=== PATIENT | female | born 1945 | race Caucasian/White ===

== ENCOUNTER 2016-11-08 08:31 | Emergency (ER) | payer MEDICARE, OTHER ==
[~2016-11-08] VITALS: Ht 157.5 cm; Wt 75.8 kg
[~2016-11-08 08:31] MED LIST: ACET-97 PO; SYN75 PO; [UNRECOGNIZED DRUG - CODE] PO
[2016-11-08 08:34] VITALS: BP 132/73; PULSE 96; RESP 16; O2SAT 95
--- NOTE | 2016-11-08 08:41 | ED.REPORT ---
HPI-General Illness Date of Service November 08, 2016 ED Provider: Ángel Vera DO The pt is a 71 y/o female w/ a hx of hypothyroidism and dementia presenting to the ED complaining of R eye swelling onset three hours ago. Her reports that she has been rubbing her eye "quite a bit" due to it itching. The pt denies any eye pain. The pt has a cold which began roughly two weeks ago w/ sneezing, rhinorrhea, and coughing and believes that this caused her symptoms. The pt's also reports the pt experiencing similar symptoms in the past which begin when the pt gets a cold. Nursing Notes Stated Complaint: COLD Chief Complaint: FLU/Cold Symptoms Nursing Notes Reviewed: Yes Allergies: Coded Allergies: caffeine (Verified Allergy, Kidney failure, 05/26/12) ergotamine tartrate (Verified Allergy, Kidney failure, 05/26/12) ibuprofen (Verified Allergy, 05/26/12) Scheduled Amoxicillin/Clav K 875-125 mg (Augmentin 875-125 mg) 1 Each Tablet 1 TABLET PO BID Levothyroxine-Expunged Drug, Do Not Renew! (Synthroid-Expunged Drug, Do Not Renew!) 75 Mcg Tablet 0.075 MG PO DAILY EXCEPT TAKE 1/2 TAB -- Loratadine (Claritin) 10 Mg Capsule 10 MG PO DAILY Scheduled PRN Acetaminophen (Apap) 500 Mg Tablet 500 MG PO PRN Rizatriptan-Expunged Drug, Do Not Renew! (Maxalt-Expunged Drug, Do Not Renew!) 10 Mg Tablet 10 MG PO ONCE PRN PRN MAY REPEAT @ 2 HR INTERVALS, NO TO EXCEED 30MG IN 24 HRS General Time Seen by MD: 08:40 Chief Complaint Other (R eye swelling ) Hx Obtained From: Patient, Spouse Arrived By: Walk-in Sudden in Onset?: Yes Onset Occurred: 1 - 4 hours ago Symptom Duration: Since onset Recent Healthcare: No recent hospitalization, Recent doctor visit Similar Sx Previous: Yes Past Medical History Past Medical History Hypothyroidism Kidney failure Dementia Depression Past Surgical History none reported Smoking History Unknown if Ever Smoker Social History Other Social History: Good social support Ambulatory Status Independent Review of Systems R eye swelling and itching Full Review of Systems Eyes: Denies: Eye pain bilateral Ears / Nose / Throat: Reports: Nasal congestion Respiratory: Reports: Non-productive cough Allergy / Immune: Reports: Rhinorrhea, Sneezing Complete sys rev & neg: except as marked. Physical Exam Vital Signs Vital Signs Date Time Temp Pulse Resp B/P Pulse Ox O2 Delivery O2 Flow Rate FiO2 11/08/16 08:34 37.9 96 16 132/73 95 Room Air Initial VS: Reviewed General/Constitutional: Awake, Alert Alertness: Positive: Confused Head / Eyes: Normocephalic, No photophobia Edema around R eye w/o erythema Mild conjunctival redness w/o drainage Mild clear discharge ENT: Atraumatic, Airway patent, Pharynx NL Neck: Atraumatic, Full range of motion Respiratory / Chest: Atraumatic, Breath sounds NL, Breath sounds = bilat, No respiratory distress, No rales, No rhonchi, No wheezing Cardiovascular: Heart rate NL, Regular rhythm, Heart sounds NL Back: Atraumatic, Full range of motion Skin: Atraumatic, Color NL, No rash, Warm, Dry Neurologic: Oriented X3, Speech NL Psychiatric: Affect NL, Mood NL Interpretation & Diagnostics Lab Results Interpretation Result Diagram: 11/08/16 0855 11/08/16 0855 Test 11/08/16 08:55 White Blood Count 12.6th/mm3 (3.8-10.1) Red Blood Count 4.35mil/mm3 (3.90-5.20) Hemoglobin 14.6g/dL (12.0-15.6) Hematocrit 41.1% (35.0-46.0) Mean Corpuscular Volume 94.5fL (81-100) Mean Corpuscular Hemoglobin 33.6pg (27.0-35.0) Mean Corpuscular Hemoglobin Concent 35.5% (32.0-37.0) Red Cell Distribution Width 12.0% (12.3-15.4) Platelet Count 179bil/L (150-400) Neutrophils (%) (Auto) 79.0% (40-74) Lymphocytes (%) (Auto) 13.3% (14-46) Monocytes (%) (Auto) 6.4% (4-12) Eosinophils (%) (Auto) 0.8% (0-5) Basophils (%) (Auto) 0.3% (0-3) Sodium Level 136mEq/L (134-144) Potassium Level 4.0mEq/L (3.5-5.2) Chloride Level 97mEq/L (97-108) Carbon Dioxide Level 26mmol/L (18-29) Blood Urea Nitrogen 12mg/dL (8-27) Creatinine 0.72mg/dL (0.57-1.00) Estimat Glomerular Filtration Rate 114mL/min (>59) Glucose Level 251mg/dL (60-99) Calcium Level 8.9mg/dL (8.5-10.1) Hold [place] Top Tube Received (Received) X-Ray Chest Interpretation Chest Xray Interpretation: No acute findings Interpretation / Wet Read by: Wet read ED physician Re-Eval/Medical Decision Med Decision/Clinical Course Exam looks more like allergic edema around the eyes associated with itching, it does not look like periorbital and especially not orbital cellulitis. Given the clinical history of a prolonged respiratory illness with nasal drainage Augmentin as per prescribed for sinus infection. Also she is given medicine, loratadine and Benadryl, to treat the allergic symptoms. Strong return and follow-up precautions given Source of Hx: Old records Time of Eval: 09:58 Patient Status: Condition improved Re-Evaluation/Progress Note: Pt rechecked, who is resting. Her edema has improved and her temperature. The diagnosis and plan for discharge are discussed. The pt understands and agrees with the plan. All questions are addressed at this time. Counseled Regarding: Diagnosis, Lab results, Need for follow-up, When/why to return to ED Discharge & Departure Primary Impression: Sinusitis Additional Impression: Hyperglycemia Disposition: Home Discharge Condition All VS Reviewed: Yes Condition: Stable Additional Instructions: Overall there is no evidence of pneumonia, you may have sinusitis. I suspect that your eye puffiness is likely allergic does not seem to be infectious at this time. Take Augmentin, Claritin, and [id number] Benadryl. Incidentally your blood sugar was elevated today, this sounds abnormal for you. You should follow-up with your primary care for more testing and repeat glucose monitoring to see if you have developed type II diabetes. Call your primary care doctor Thursday morning for repeat evaluation, return to the ER as needed for concerning or worsening symptoms. Referrals: Maryse Peng MD (PCP) Scribe Attestation Portions of this note were transcribed by Marty Juinor and Rahul Doe. I, Dr. Ky Lira personally performed the history, physical exam and medical decision- making; I reviewed and confirmed the accuracy of the information in the transcribed note. Signed by: Marty Junior and Rahul Doe, Scribes, 11/08/16 and 1010. copies to: Maryse Peng MD,Ángel Denise SEAY November 08, 2016 08:41 Marty Junior November 08, 2016 08:54 RAHUL DOE November 08, 2016 09:59
[2016-11-08] MEDS ORDERED: diphenhydrAMINE 25 mg Capsule PO ONE (08:55)
[2016-11-08 09:07] LABS: BASOPHILS % (AUTO) 0.3 % (0-3); EOSINOPHILS % (AUTO) 0.8 % (0-5); MONOCYTES % (AUTO) 6.4 % (4-12); Mean Corpuscular Hemoglobin 33.6 pg (27.0-35.0); Mean Corpuscular Volume 94.5 fL (81-100); Platelet Count 179 bil/L (150-400)
[2016-11-08] MEDS ORDERED: LORA10CA PO (10:03)
[2016-11-08] MEDS ORDERED: AMOX-366 PO (10:03)
--- NOTE | 2016-11-08 10:48 | DRSVH ---
PROCEDURE: X-RAY CHEST, TWO VIEWS ([id number]) INDICATIONS: cough TECHNIQUE: 2 views of the chest were acquired. COMPARISON: None. FINDINGS: Surgical changes and devices: None. Lungs and pleura: No pleural effusions or pneumothorax. Lungs are clear. Mediastinum: Mediastinal contours are normal. Heart size is normal. Bones and chest wall: No suspicious bony abnormalities. Soft tissues appear unremarkable. IMPRESSION: No acute disease Dictated by: Evangelista Coleman M.D. on 11/08/2016 at 10:25 Approved by: Evangelista Coleman M.D. on 11/08/2016 at 10:47
[2016-11-26] MEDS ORDERED: DONE10TA42 PO (15:26)
[2016-11-26] MEDS ORDERED: NAM10 PO (15:26)
[2016-11-26] MEDS ORDERED: LEVO25TA5 PO (15:26)
== END 2016-11-08 10:16 | disposition home or self-care (01) ==
LOC: SED 08:31
DX: J32.9 Chronic sinusitis, unspecified (principal); R73.9 Hyperglycemia, unspecified; E03.9 Hypothyroidism, unspecified; F03.90 Unspecified dementia, unspecified severity, without behavioral disturbance, psychotic disturbance, mood disturbance, and anxiety; Z88.6 Allergy status to analgesic agent; Z88.8 Allergy status to other drugs, medicaments and biological substances; Z79.899 Other long term (current) drug therapy

== ENCOUNTER 2016-11-28 12:10 | Day surgery (SDC) | payer MEDICARE, OTHER ==
[~2016-11-28] VITALS: Ht 160 cm; Wt 64.0 kg
[~2016-11-28 12:10] MED LIST changes: +DONE10TA42 PO; +LEVO25TA5 PO; +NAM10 PO; -SYN75 PO; +Sodium Chloride LOK Flush 10 mL Syringe IV PRN; +fentaNYL-PF 50 mCg/mL 2 mL Inj IVPUSH PRN
[2016-11-28] MEDS ORDERED: fentaNYL-PF 50 mCg/mL 2 mL Inj IVPUSH ONE (12:11)
[2016-11-28 12:53] VITALS: BP 134/65; PULSE 71; RESP 16; O2SAT 98
[2016-11-28] MEDS: 0.9% Sodium Chloride 1,000 ML IV SCH ×2 (13:16→14:01)
--- NOTE | 2016-11-28 13:40 | PCM.HPANE ---
Patient Data Surgeon Admitting Provider: Attending Provider:Natasha Garcia MD Primary Care Physician:Maryse Peng MD Other Provider: Reason for Visit Screening Ht/WT & BMI Height (Feet): 5 Height (Inches): 3 Weight (Kilograms): 64 Body Mass Index 25.00 Allergies Coded Allergies: caffeine (Verified Allergy, Unknown, Kidney failure, 11/26/16) ergotamine tartrate (Verified Allergy, Unknown, Kidney failure, 11/26/16) ibuprofen (Verified Allergy, Unknown, 11/26/16) Past Anesthesia History Anesthesia History: Denies:: Abnormal Airway, Anesthesia Reactions, Difficult Intubation, Fam Anesthesia Reaction, Fam Malignant Hypertherm, Malignant Hyperthermia Diabetes History Hx Diabetes?: No MRSA MRSA: No Medications Hypertension Medication: No Home Meds Incl Beta Edie: No Reported Medications Levothyroxine 25 Mcg [id number] Mcg PO DAILY Ref 0 11/26/16 Donepezil 10 Mg [id number] Mg PO HS Ref 0 11/26/16 Acetaminophen (Apap)500 Mg [id number] Mg PO PRN 05/26/12 Discontinued Reported Medications Memantine (Namenda)10 Mg [id number] Mg PO BID 30 Days Ref 0 11/26/16 Rizatriptan-Expunged Drug, Do Not Renew! (Maxalt-Expunged Drug, Do Not Renew!) 10 Mg Yweofn95 Mg PO ONCE PRN MAY REPEAT @ 2 HR INTERVALS, NO TO EXCEED 30MG IN 24 HRS 05/20/12 Levothyroxine-Expunged Drug, Do Not Renew! (Synthroid-Expunged Drug, Do Not Renew!)75 Mcg Tablet0.075 Mg PO DAILY EXCEPT TAKE 1/2 TAB M-W-F 05/20/12 Discontinued Scripts Loratadine (Claritin)10 Mg Tuskjxg54 Mg PO DAILY #30 CAPSULE Ref 0 Prov:Ángel Vera DO 11/08/16 Amoxicillin/Clav K 875-125 mg (Augmentin 875-125 mg)1 Each Tablet1 Tablet PO BID #20 TABLET Ref 0 Prov:Ángel Vera DO 11/08/16 History History of ENT Problems?: Yes HEENT History: Positive for:: Sinus Problem Denies:: Abnormal Airway Difficult Intubation Hearing Problem Denture Type: None Teeth Condition: Within Normal Limits Hx of Heart Problems?: No Cardiovascular History: Denies:: AICD Pacemaker Valvular Heart Disease Hx of Respiratory Problem?: No Respiratory History: Denies:: Asthma COPD Chest Surgery Cough Dyspnea Emphysema Hemoptysis Oxygen Administration Pneumonia Pulmonary Embolism Tuberculosis Use of C-PAP Machine Use of Inhalers / NEBS Hx Neurologic Problems?: Yes Neurological History: Positive for:: Headaches Denies:: CVA Hx of GI Problems?: No Hx of Problems?: Yes Hx Musculoskeletal Problems?: Yes Musculoskeletal History: Positive for:: Back Injury Denies:: Fibromyalgia Joint Replacement Hx of Psycho/Social Problems?: Yes Psycho Social History: Positive for:: Anxiety Denies:: Hx Depression Hx Surgeries?: Yes (GALLBLADDER) Hx Any Other Health Problems?: Yes Other History: Positive for:: Hospitalization (Kidney failure) Thyroid Disease (Hypothyroid) Denies:: Cancer Endocrine Disease History Blood Transfusions: Denies:: Blood Transfuse Reaction Blood Transfusions Hx Diabetes: No Hx Alcohol Use: NoHx Substance Use: No Smoking Status: Unknown if Ever Smoker Stop/Bang Treated for Sleep Apnea?: No Do You Have a CPAP Machine?: No S-Snoring: Do You Snore Loudly: Yes T-Tired: feel tired, fatigued: No O-Obsered: Observed not breath: No P-Blood Pressure: treated: No B- Body Mass Index > 35 kg/m2: No A- Age over 50: Yes N- Neck Large Circumference: No G- Gender Male: No SOPHIE Total Score: 2 SOPHIE Risk Assessment: Low Risk, <3 Yes Risk Assessment Category Category 1A: Patient has history of documented sleep apnea, and HAS NOT received any narcotic, sedative or anesthesia administration during this stay. Category 1B: Patient has history of documented sleep apnea, and HAS received any narcotic , sedative or anesthesia administration during this stay Category 2: Patient has SUSPECTED Obstructive Sleep Apnea, and HAS received any narcotic , sedative or anesthesia administration during this stay. Category 3: Patient has SUSPECTED Obstructive Sleep Apnea and HAS NOT received narcotic, sedative or anesthesia administration during this stay. Category 4: Outpatient in Procedural Areas with known sleep apnea or who screen positive for High Risk via the STOP/BANG questionnaire. Exam Exam Vital Signs Vital Signs Date Time Temp Pulse Resp B/P Pulse Ox O2 Delivery O2 Flow Rate FiO2 11/28/16 12:53 71 16 134/65 98 Room Air General Appearance: Oriented X3 HEENT/AIRWAY: MP 2 Lungs: Normal Air Movement Heart: Regular Rate/Rhythm Meds/Labs/Diagnostics Admission Meds Current Medications Sodium Chloride (Normal Saline) 1,000 ml @ 10 mls/hr Q24H IV Last administered on 11/28/16t 13:16; Start 11/28/16 at 06:00 Plan Impression Patient chart reviewed, patient interviewed and anesthestic plan with risks, benefits, and alternatives discussed, and informed consent obtained. ASA Physical Status: ASA2 Mod Systemic Disease Anesthetic Plan: MAC Bene/Risks/Altern/Consents: Yes HP Complete Prior to Induction: Yes Bulmaro Dias MD Nov 28, 2016 13:40
[2016-11-28 14:08] VITALS: BP 114/59; PULSE 71; RESP 16; O2SAT 99
[2016-11-28 14:18] VITALS: BP 114/59; PULSE 73; RESP 16; O2SAT 100
[2016-11-28 14:28] VITALS: BP 108/58; PULSE 66; RESP 16; O2SAT 98
--- NOTE | 2016-11-29 07:52 | ENDO ---
[address] [address] ENDOSCOPY PROCEDURE PATIENT: MONTANA FLORES : 1945 MR#: [id number] ADMIT: 11/28/2016 JOB ID: [id number] DATE OF SERVICE: 11/28/2016 PROCEDURE PERFORMED: Colonoscopy. INDICATIONS: Screening. ASA CLASSIFICATION: The patient's ASA classification is II. MALLAMPATI SCORE: Mallampati score was 2. MEDICATIONS: 1. Versed 4 mg. 2. Fentanyl 50 mcg. 3. In addition, Anesthesiology assistance was needed for rescue, as the patient was unable to tolerate procedure secondary to pain. Please see anesthesia report for details regarding further sedation. INSTRUMENT USED: [id number]. PREPARATION QUALITY: Good. PROCEDURE DETAILS: After informed consent was obtained, the patient was brought into the GI suite, where she was placed on oxygen via nasal cannula and monitored with continuous pulse oximeter, telemetry, and blood pressure monitoring. A time-out was performed. Then, she was placed in the left lateral decubitus position and medications were administered for sedation. Digital rectal exam was performed which was unremarkable. The colonoscope was then inserted into the rectum and advanced under direct visualization to the cecum, which was identified by the presence of the ileocecal valve and appendiceal orifice. Once the cecum was reached, the colonoscope was withdrawn back into the rectum. We were unable to perform retroflexion in the rectum secondary to a short rectal vault. FINDINGS: 1. In the periappendiceal area there was an approximately 4-5 mm polyp that prolapsed into the appendiceal orifice. We were with cold biopsy forceps, however, able to retract the polyp and then remove it with a cold biopsy forceps. 2. Scattered diverticula were seen primarily in the left side of the colon. IMPRESSION: 1. Periappendiceal polyp. 2. Left-sided diverticulosis. RECOMMENDATIONS: Repeat colonoscopy pending polyp pathology results. COMPLICATIONS: None. ESTIMATED BLOOD LOSS: Less than 5 mL.
--- NOTE | 2016-12-02 15:46 | PATH ---
SURGICAL PATHOLOGY Attending Physician:Nathalie Dunlap CASE STATUS: Signed Out PATIENT NAME: MONTANA FLORES PID: [id number] : 1945 DATE COLLECTED:11/28/2016 00:00 SPECIMEN: Colon, Biopsy CLINICAL HISTORY: 1). GUERLINE-APPENDICEAL COLON POLYP FINAL DIAGNOSIS: Periappendiceal Colon Polyp, Biopsy: Portion of sessile serrated adenoma x1. Superficial portions of colorectal mucosa x 3 with occasional lymphoid aggregates and with no diagnostic abnormality. ICD10: K63.5 GROSS DESCRIPTION: The specimen is received in one formalin filled container labeled with the patient's name, sublabeled "guerline-appendiceal colon polyp" and consists of 4 portions of tissue which aggregate to 0.3 x 0.3 x 0.2 CM. The specimen is entirely submitted in one cassette. 11/29/2016 [facility] ICD-9 CODES: CPT CODES: 1: 45938 Electronically Signed Out Berenice Guidry MD [facility] [address], [place] [address] Technical component performed at [facility], [facility] [address], [address]
== END 2016-11-28 23:59 | disposition home or self-care (01) ==
LOC: END 12:10
PROVIDERS: ATTEND Internal Medicine Gastroenterology
DX: Z12.11 Encounter for screening for malignant neoplasm of colon (principal); D12.0 Benign neoplasm of cecum; G30.9 Alzheimer's disease, unspecified; E03.9 Hypothyroidism, unspecified; K57.30 Diverticulosis of large intestine without perforation or abscess without bleeding
CPT/HCPCS: 45380; 88305; 99153; G0500; J2250; J3010; J7030